=== PATIENT | female | born 1960 | race American Indian/Alaskan Native ===

== ENCOUNTER 2019-03-19 11:33 | Emergency (ER) | payer OTHER ==
--- NOTE | 2019-03-19 11:58 | Emergency Department Report ---
Blank Doc - Documentation Documentation: 58-year-old female that presents with abdominal pain and n/v. This initial assessment/diagnostic orders/clinical plan/treatment(s) is/are subject to change based on patient's health status, clinical progression and re- assessment by fellow clinical providers in the ED. Further treatment and workup at subsequent clinical providers discretion. Patient/guardians urged not to elope from the ED as their condition may be serious if not clinically assessed and managed. Initial orders include: 1- Patient sent to [facility] for further evaluation and treatment 2- labs 3- UA
[2019-03-19 12:00] VITALS: BP 148/90
[2019-03-19] MEDS ORDERED: SODIUM CHLORIDE 0.9% 1000 ML 1,000 ML IV ONE (12:28)
[2019-03-19] MEDS ORDERED: KETOROLAC 30 MG/1 ML INJ IV ONE (12:28)
[2019-03-19] MEDS ORDERED: FAMOTIDINE 20 MG/2 ML INJ IV ONE (12:28)
[2019-03-19] MEDS ORDERED: ONDANSETRON 4 MG/2 ML INJ IV ONE (12:28)
[2019-03-19 12:42] LABS: Bilirubin,Urine NEG (Negative); Blood,Urine NEG (Negative); Color,Urine Yellow (Yellow); Mucus,Urine FEW /HPF; Protein,Urine <15 mg/dL mg/dL (Negative); Urobilinogen,Urine < 2.0 mg/dL (<2.0)
[2019-03-19 12:54] LABS: Basophils # (Auto) 0.1 K/mm3 (0.0-0.1); Basophils % (Auto) 0.6 % (0.0-1.8); Eosinophils # (Auto) 0.1 K/mm3 (0.0-0.4); Eosinophils % (Auto) 1.3 % (0.0-4.3); Hematocrit 42.1 % (30.3-42.9); Hemoglobin 13.8 gm/dl (10.1-14.3); Lymphocytes # (Auto) 1.5 K/mm3 (1.2-5.4); Lymphocytes % (Auto) 13.7 % (13.4-35.0); Mean Corpuscular HGB Conc 33 % (30-34); Mean Corpuscular Volume 82 fl (79-97); Monocytes # (Auto) 0.8 K/mm3 (0.0-0.8); Monocytes % (Auto) 7.2 % (0.0-7.3); Platelet Count 331 K/mm3 (140-440); Red Blood Count 5.14 M/mm3 (3.65-5.03); Red Cell Distribution Width 14.7 % (13.2-15.2)
[2019-03-19 13:19] LABS: Alanine Aminotransferase 37 units/L (7-56); BUN/Creatinine Ratio 10; Blood Urea Nitrogen 9 mg/dL (7-17); Calcium 9.7 mg/dL (8.4-10.2); Hemolysis Index 3
--- NOTE | 2019-03-19 14:11 | Emergency Department Report ---
ED Abdominal Pain HPI - General Chief Complaint: Abdominal Pain Stated Complaint: VOMIT/LFT SIDE PAIN Time Seen by Provider: 03/19/19 11:58 Source: patient Mode of arrival: Wheelchair Limitations: No Limitations - History of Present Illness Initial Comments: This is a 58-year-old female who presents the ED complaining of upper to mid abdominal pain for the past week. Patient states she went to her primary care physician 7 days ago and was tested for H. pylori due to symptoms. Patient states she was given omeprazole which she is currently taking with no relief. Patient states that she has had a couple episodes of vomiting that happened 2 days ago. Patient states that pain is worsened with food. Patient denies any radiation of pain elsewhere. Patient denies any prior medical history or abdominal surgeries. Patient states that she does not know the results of the H. pylori test she was given but she is going to call her doctor's office right now. MD Complaint: abdominal pain Severity scale (0 -10): 0 - Related Data Previous Rx's Medication Instructions Recorded Last Taken Type Amoxicillin [Amoxicillin TAB] 875 mg PO BID #20 tablet 03/19/19 Unknown Rx Clarithromycin [Clarithromycin ER] 500 mg PO DAILY #10 tab.er.24h 03/19/19 Unknown Rx Ketorolac [Toradol] 10 mg PO Q6H PRN #20 tablet 03/19/19 Unknown Rx Ondansetron [Zofran ODT TAB] 8 mg PO Q12HR #30 tab.rapdis 03/19/19 Unknown Rx Allergies Allergy/AdvReac Type Severity Reaction Status Date / Time tree nut Allergy Swelling Verified 03/19/19 11:40 ED Review of Systems ROS: Stated complaint: VOMIT/LFT SIDE PAIN Other details as noted in HPI Comment: All other systems reviewed and negative ED Past Medical Hx - Past Medical History Previous Medical History?: Yes Hx Diabetes: Yes - Social History Smoking Status: Never Smoker Substance Use Type: None - Medications Home Medications: Home Medications Medication Instructions Recorded Confirmed Last Taken Type Amoxicillin [Amoxicillin TAB] 875 mg PO BID #20 tablet 03/19/19 Unknown Rx Clarithromycin [Clarithromycin ER] 500 mg PO DAILY #10 tab.er.24h 03/19/19 Unknown Rx Ketorolac [Toradol] 10 mg PO Q6H PRN #20 tablet 03/19/19 Unknown Rx Ondansetron [Zofran ODT TAB] 8 mg PO Q12HR #30 tab.rapdis 03/19/19 Unknown Rx ED Physical Exam - General Limitations: No Limitations General appearance: alert, in no apparent distress - Head Head exam: Present: atraumatic, normocephalic - Eye Eye exam: Present: normal appearance - ENT ENT exam: Present: mucous membranes moist - Neck Neck exam: Present: normal inspection. Absent: tenderness - Respiratory Respiratory exam: Present: normal lung sounds bilaterally. Absent: respiratory distress - Cardiovascular Cardiovascular Exam: Present: regular rate, normal rhythm. Absent: systolic murmur, diastolic murmur, rubs, gallop - GI/Abdominal GI/Abdominal exam: Present: soft, normal bowel sounds. Absent: distended, tenderness, guarding, mass, bruit - Extremities Exam Extremities exam: Present: normal inspection - Back Exam Back exam: Present: normal inspection - Neurological Exam Neurological exam: Present: alert, oriented X3 - Psychiatric Psychiatric exam: Present: normal affect, normal mood - Skin Skin exam: Present: warm, dry, intact, normal color. Absent: rash ED Course Vital Signs 03/19/19 11:58 Temperature 97.5 F L Pulse Rate 112 H Respiratory 20 Rate Blood Pressure 148/90 O2 Sat by Pulse 99 Oximetry ED Medical Decision Making - Lab Data Result diagrams: 03/19/19 12:39 03/19/19 12:39 - Radiology Data Radiology results: report reviewed, image reviewed CT scan of the abdomen and pelvis without contrast INDICATION: Lower abdominal pain. TECHNIQUE: All CT scans at this location are performed using the following dose modulation technique: Automated exposure control. Helical slices were obtained through the abdomen and pelvis. No contrast is administered. COMPARISON: None available. FINDINGS: Abdomen: No acute abnormality is seen in the lower chest. There is a somewhat indistinct 4 cm hypodensity in the posterior aspect of the spleen indeterminate. The adrenal glands, liver, pancreas, and small bowel show no acute abnormality. Gallbladder is grossly unremarkable. There is some parenchymal and vascular calcifications noted in the left kidney. No renal or ureteral calculi are seen. There is no hydronephrosis. The aorta is normal in diameter. There is no adenopathy. There is no obstruction, inflammation, or free air. The appendix is unremarkable. Pelvis: There is no obstruction or inflammation. No adenopathy is seen. No acute abnormality is seen in the pelvis. On review of bone windows, there is mild anterior compression of T11 and T12. This is age indeterminate. IMPRESSION: 1. There is no obstruction, inflammation, or free air. There are no abnormal fluid collections. There is some parenchymal and vascular calcifications in the left kidney. No calculi are seen. There is a 4 cm hypodensity in the posterior aspect of the spleen which is indeterminate.. Signer Name: Yung Bueno MD Signed: 03/19/2019 3:31 PM Workstation Name: [id number] Transcribed By: Dictated By: Yung Bueno MD Electronically Authenticated By: Yung Bueno MD Signed Date/Time: 03/19/19 1531 - Medical Decision Making This is a 58-year-old female who presents to ED for abdominal pain. All labs are within normal limits. Patient is in no acute distress. Patient received fluids, pain medication. CT scan showed no acute abdomen. Incidental findings as reported above. Discussed findings with the patient. Discussed with patient to follow-up with digital music instructor to investigate findings on the CT. Patient agrees and states she will. Patient did mention that she was tested for H. pylori at her primary care physician's office about 2 3 days ago. Patient states she just got the results today and was positive. We will treat with clarithromycin and amoxicillin. Patient is on omeprazole daily. Patient vital signs are normal. Critical care attestation.: If time is entered above; I have spent that time in minutes in the direct care of this critically ill patient, excluding procedure time. ED Disposition Clinical Impression: Abdominal pain, Gastritis, H. pylori infection Disposition: DC-01 TO HOME OR SELFCARE Is pt being admited?: No Does the pt Need Aspirin: No Condition: Stable Instructions: Abdominal Pain (ED) Additional Instructions: Make sure to follow up with the primary care physician as discussed. Follow-up with digital music instructor. Take all your medications as you've been prescribed. If you have any worsening symptoms or develop new symptoms please return to ED immediately. Prescriptions: Amoxicillin [Amoxicillin TAB] 875 mg PO BID #20 tablet Clarithromycin [Clarithromycin ER] 500 mg PO DAILY #10 tab.er.24h Ketorolac [Toradol] 10 mg PO Q6H PRN #20 tablet PRN Reason: Pain Ondansetron [Zofran ODT TAB] 8 mg PO Q12HR #30 tab.rapdis Referrals: PRIMARY CARE, [Primary Care Provider] - 3-5 Days [facility] [Provider Group] - 3-5 Days [facility] [Provider Group] - 3-5 Days [facility] [Provider Group] - 3-5 Days [facility] [Outside] - 3-5 Days [facility] [Outside] - 3-5 Days Forms: Accompanied Note, Work/School Release Form(ED) Time of Disposition: 16:36
--- NOTE | 2019-03-19 15:36 | Cat Scan Report ---
CT scan of the abdomen and pelvis without contrast INDICATION: Lower abdominal pain. TECHNIQUE: All CT scans at this location are performed using the following dose modulation technique: Automated exposure control. Helical slices were obtained through the abdomen and pelvis. No contrast is adminis tered. COMPARISON: None available. FINDINGS: Abdomen: No acute abnormality is seen in the lower chest. There is a somewhat indistinct 4 cm hypoden sity in the posterior aspect of the spleen indeterminate. The adrenal glands, liver, pancreas, and sm all bowel show no acute abnormality. Gallbladder is grossly unremarkable. There is some parenchymal and vascular calcifications noted in the left kidney. No renal or ureteral calculi are seen. There is no hydronephrosis. The aorta is normal in diameter. There is no adenopathy . There is no obstruction, inflammation, or free air. The appendix is unremarkable. Pelvis: There is no obstruction or inflammation. No adenopathy is seen. No acute abnormality is seen in the pelvis. On review of bone windows, there is mild anterior compression of T11 and T12. This is age indetermina te. IMPRESSION: 1. There is no obstruction, inflammation, or free air. There are no abnormal fluid collections. There is some parenchymal and vascular calcifications in the left kidney. No calculi are seen. There is a 4 cm hypodensity in the posterior aspect of the spleen which is indeterminate.. Signer Name: Yung Bueno MD Signed: 03/19/2019 3:31 PM Workstation Name: [id number]
== END 2019-03-19 18:51 | disposition home or self-care (01) ==
LOC: ED 11:33
DX: A04.8 Other specified bacterial intestinal infections (principal); K29.70 Gastritis, unspecified, without bleeding; R10.9 Unspecified abdominal pain; E11.9 Type 2 diabetes mellitus without complications; Z91.018 Allergy to other foods; Z79.899 Other long term (current) drug therapy
CPT/HCPCS: 36415; 74176; 80053; 81001; 83690; 85025; 96361; 96374; 96375; 99284; J1885; J2405; J7030